=== PATIENT | female | born 1985 | race Caucasian/White ===

== ENCOUNTER 2017-04-24 19:42 | Emergency (ER) | payer OTHER ==
[2017-04-24 19:51] VITALS: BP 136/77
--- NOTE | 2017-04-24 19:57 | ED Physician Documentation ---
PD HPI UPPER EXT INJURY - Stated complaint Stated Complaint: FINGER PX - Chief complaint Chief Complaint: General - History obtained from History obtained from: Patient - History of Present Illness Location: Left, Finger (thumb) Type of injury: Blunt / blow (her nail rubbed on something and the proximal nail split at the base. Pain of it overnight and today she is noting a lump of tissue that is very tender.) Where injury occurred: Home Timing - onset: Yesterday Review of Systems GI: denies: Nausea, Vomiting Neurologic: denies: Focal weakness, Numbness PD PAST MEDICAL HISTORY - Past Medical History Psych: Depression - Past Surgical History Past Surgical History: Yes - Present Medications Home Medications: Ambulatory Orders Medication Instructions Recorded Confirmed Escitalopram Oxalate [Lexapro] 20 mg PO DAILY 01/27/15 04/24/17 buPROPion [Wellbutrin Sr] 300 mg PO DAILY 08/17/15 04/24/17 Cetirizine [ZyrTEC] 10 mg PO DAILY 04/24/17 04/24/17 Terbinafine HCl [Terbinafine] 1 applic TP DAILY #15 cream..g. 04/24/17 Zolpidem Tartrate [Ambien] 10 mg PO DAILY PM 04/24/17 04/24/17 - Allergies Allergies/Adverse Reactions: Allergies Allergy/AdvReac Type Severity Reaction Status Date / Time Penicillins Allergy Rash Verified 08/28/15 19:03 - Social History Does the pt smoke?: No Smoking Status: Never smoker Does the pt drink ETOH?: No Does the pt have substance abuse?: No - Immunizations Immunizations are current?: Yes - POLST Patient has POLST: No PD ED PE NORMAL - Vitals Vital signs reviewed: Yes - General General: Alert and oriented X 3, No acute distress, Well developed/nourished - Derm Derm: Normal color, Warm and dry - Extremities Extremities: Other (the base of the left thumb with small losa of the nail in 2 mm size. There is some 1-2 mm lumped tissue c/w healing granulation tissue. Does not appear infected. ) Results - Vitals Vitals: Vital Signs - 24 hr 04/24/17 19:49 Temperature 36.6 C Heart Rate 83 Respiratory 20 Rate Blood Pressure 136/77 H O2 Saturation 98 Oxygen O2 Source Room air PD MEDICAL DECISION MAKING - ED course Complexity details: considered differential (she has small grooves in several fingernails. Prior acrylic use might have caused damage, or biting the quick. The thumb seems to have split at this type of groove and there is small granulation tissue at proximal corner of bed. Dermabond placed over it. Not big enough for lancing nor injecting. ), d/w patient Departure - Departure Disposition: 01 Home, Self Care Clinical Impression: Fingernail injury Qualifiers: Encounter type: initial encounter Laterality: left Qualified Code(s): S69.92XA - Unspecified injury of left wrist, hand and finger(s), initial encounter Condition: Stable Record reviewed to determine appropriate education?: Yes Prescriptions: Terbinafine HCl [Terbinafine] 1 applic TP DAILY #15 cream..g. Comments: The small swelling of tissue is "over healing" of the injury and creating an excess lump of tissue. This usually goes down after the initial healing. The nail does look like there may be some mild fungus at the base and use the terbinafine daily to the nailbeds. Recheck of the nail does not heal over the next week or so. In particular the lump of tissue should go down so that the new growth of nail from the base has a smooth glidepath. Discharge Date/Time: 04/24/17 21:04
== END 2017-04-24 21:04 | disposition home or self-care (01) ==
LOC: ED 19:42
DX: S69.92XA Unspecified injury of left wrist, hand and finger(s), initial encounter (principal); X58.XXXA Exposure to other specified factors, initial encounter
CPT/HCPCS: 99283

== ENCOUNTER 2017-04-30 09:59 | Emergency (ER) | payer OTHER ==
[2017-04-30 10:05] VITALS: BP 119/76
[2017-04-30] MEDS ORDERED: BUPIVACAINE 0.5% PF 30 ML VIAL ONE (10:24)
--- NOTE | 2017-04-30 10:54 | ED Physician Documentation ---
PD HPI UPPER EXT INJURY - Stated complaint Stated Complaint: LT THUMB PX - Chief complaint Chief Complaint: Ext Problem - History obtained from History obtained from: Patient - History of Present Illness Location: Left, Finger (thumb) Timing - onset: How many weeks ago (1) Timing - details: Still present Associated symptoms: No: Weakness, Numbness Similar symptoms before: Has not had sx before Recently seen: Emergency Dept (6 days ago.) - Additonal information Additional information: The patient is a 31-year-old female who presents with pain at the base of the nailbed of her left thumb. She had an injury to her thumbnail about one week ago when the base of the nailbed splint. She was seen in the emergency department here 6 days ago and Dermabond was applied to the injured nail and nailbed. She presents now because of increased pain and abnormal growth at the nailbed. She is right hand dominant. Tetanus status is up-to-date. Review of Systems Constitutional: denies: Fever Respiratory: denies: Dyspnea GI: denies: Nausea, Vomiting Skin: denies: Rash Musculoskeletal: reports: Extremity pain (left thumb) Neurologic: denies: Focal weakness, Numbness PD PAST MEDICAL HISTORY - Past Medical History Past Medical History: Yes Psych: Depression - Past Surgical History Past Surgical History: Yes - Present Medications Home Medications: Ambulatory Orders Medication Instructions Recorded Confirmed Escitalopram Oxalate [Lexapro] 20 mg PO DAILY 01/27/15 04/30/17 buPROPion [Wellbutrin Sr] 300 mg PO DAILY 08/17/15 04/30/17 Cetirizine [ZyrTEC] 10 mg PO DAILY 04/24/17 04/30/17 Zolpidem Tartrate [Ambien] 10 mg PO DAILY PM 04/24/17 04/30/17 HYDROcod/ACETAM 5/325 [Vicodin 1 ea PO Q6H PRN #12 tablet 04/30/17 5/325] - Allergies Allergies/Adverse Reactions: Allergies Allergy/AdvReac Type Severity Reaction Status Date / Time Penicillins Allergy Rash Verified 04/30/17 10:05 - Social History Does the pt smoke?: No Smoking Status: Never smoker Does the pt drink ETOH?: No Does the pt have substance abuse?: No - Immunizations Immunizations are current?: Yes - POLST Patient has POLST: No PD ED PE NORMAL - Vitals Vital signs reviewed: Yes (normal) - General General: Alert and oriented X 3, Well developed/nourished - HEENT HEENT: Atraumatic - Respiratory Respiratory: No respiratory distress - Derm Derm: No rash - Extremities Extremities: Other (Nailbed of the left thumb is partially removed at its base, with growth of soft tissue over the proximal border of the injured nail bed. There is no surrounding erythema, or purulent drainage. Distal neurovascular is intact.) - Neuro Neuro: Alert and oriented X 3, No motor deficit, No sensory deficit Results - Vitals Vitals: Oxygen O2 Source Room air Procedures - General procedure General procedure: Procedure: Excision of injured portion of left thumb nailbed. That anesthesia was obtained with digital block using 1% lidocaine. The thumb was prepped and draped. The proximal radial edge of the nail was lifted and excised, revealing injured nailbed below. This is not amenable to suturing. Antibiotic ointment and tube gauze dressing was applied. The patient tolerated the procedure well, without complications. PD MEDICAL DECISION MAKING - ED course Complexity details: reviewed old records, re-evaluated patient, considered differential, d/w patient ED course: The patient's presentation is significant for injured nail and nailbed of the left thumb. There is no evidence of infection, and I doubt bony injury. Treatment in the emergency department included partial excision of the proximal radial aspect of the thumbnail. She is being discharged with prescription for Vicodin, 12 tablets. I discussed with her the importance of outpatient follow- up, as well as potentially worrisome signs or symptoms that should prompt reevaluation in the emergency department. Departure - Departure Disposition: 01 Home, Self Care Clinical Impression: Nailbed injury Condition: Stable Instructions: ED Ingrown Toenail Excised Follow-Up: OMAR SOSA [Primary Care Provider] - Prescriptions: HYDROcod/ACETAM 5/325 [Vicodin 5/325] 1 ea PO Q6H PRN #12 tablet PRN Reason: Pain Comments: Keep your left hand elevated as much the time as possible. Apply antibiotic ointment daily. You can use ibuprofen, up to 800 mg 3 times daily. Use Vicodin as prescribed if needed for pain. Follow up with your primary physician next week as scheduled. Return to the emergency department if you develop any sign of infection, or otherwise worsening symptoms. Discharge Date/Time: 04/30/17 11:01
== END 2017-04-30 11:01 | disposition home or self-care (01) ==
LOC: ED 09:59
DX: S69.92XA Unspecified injury of left wrist, hand and finger(s), initial encounter (principal)
CPT/HCPCS: 11730; 99283

== ENCOUNTER 2017-05-27 20:16 | Emergency (ER) | payer OTHER ==
[2017-05-27] MEDS ORDERED: KETOROLAC 60 MG/2 ML VIAL IVP STA (21:18)
[2017-05-27] MEDS ORDERED: ONDANSETRON 4 MG/2 ML VIAL IVP STA (21:18)
[2017-05-27] MEDS ORDERED: SODIUM CHLORIDE 0.9% 1,000 ML IV ONE (21:18)
[2017-05-27] MEDS ORDERED: HYDROmorphone 1 MG/ML SYRINGE IVP STA ×2 (21:18→22:12)
[2017-05-27] MEDS ORDERED: SODIUM CHLORIDE FLUSH 0.9% 10 ML SYRINGE IVP ONE (21:31)
[2017-05-27] MEDS ORDERED: ONDANSETRON 4 MG/2 ML VIAL ONE (21:41)
[2017-05-27] MEDS ORDERED: KETOROLAC 30 MG/ML VIAL ONE (21:41)
[2017-05-27] MEDS ORDERED: HYDROmorphone 1 MG/ML SYRINGE ONE ×2 (21:41→22:23)
[2017-05-27 21:46] LABS: CALCIUM 9.1 mg/dL (8.5-10.3); CREATININE 0.7 mg/dL (0.4-1.0); POTASSIUM 3.9 mmol/L (3.5-5.0)
[2017-05-27 21:49] LABS: BASOPHILS % (AUTO) 0.2 %; HCT - HEMATOCRIT 36.4 % (37.0-47.0); HGB - HEMOGLOBIN 12.6 g/dL (12.0-16.0); LYMPHOCYTES # (AUTO) 2.1 10^3/uL (1.5-3.5); LYMPHOCYTES % (AUTO) 15.8 %; MEAN CORPUSCULAR HEMOGLOBIN 32.3 pg (27.0-31.0); MEAN CORPUSCULAR HGB CONC 34.7 g/dL (32.0-36.0); MEAN CORPUSCULAR VOLUME 93.2 fL (81.0-99.0); MEAN PLATELET VOLUME 7.1 fL (7.9-10.8); MONOCYTES # (AUTO) 0.7 10^3/uL (0.0-1.0); MONOCYTES % (AUTO) 5.1 %; NEUTROPHILS # (AUTO) 10.6 10^3/uL (1.5-6.6); NEUTROPHILS % (AUTO) 78.9 %; RED CELL DISTRIBUTION WIDTH 12.4 % (12.0-15.0); UNCORRECTED WHITE BLOOD COUNT 13.4 x10^3/uL; WHITE BLOOD COUNT 13.4 x10^3/uL (4.8-10.8)
[2017-05-27] MEDS ORDERED: AZITHROMYCIN 250 MG TABLET PO STA (21:53)
--- NOTE | 2017-05-27 22:10 | ED Physician Documentation ---
History of Present Illness - Stated complaint Stated Complaint: SORE THROAT - Chief complaint Chief Complaint: Heent - Additonal information Additional information: 31-year-old female status post tonsillectomy a week ago who comes in with sore throat, low-grade fevers, myalgias and decreased p.o. intake. She feels dizzy when she stands. She is currently taking pain medication, Motrin, Tylenol and oxycodone at home with variable relief. She comes in because she feels she is getting worse not better in regards to her sore throat. Denies any chest pain, shortness of breath cough, nausea, vomiting, constipation , diarrhea or lower urinary symptoms. Review of systems: For pertinent positive and negatives in the review of systems please see the history of present illness, otherwise all other systems have been reviewed and are negative. Dragon disclaimer: Parts of this medical record were created using voice recognition technology. Because of the inherent limitations of this system, occasional same sounding word substitutions do occur and persist despite proofreading. Please read the document for context. Review of Systems Constitutional: reports: Fever, Chills, Myalgias Throat: reports: Sore throat Cardiac: denies: Chest pain / pressure, Palpitations GI: denies: Abdominal Pain, Abdominal Swelling, Nausea, Vomiting PD PAST MEDICAL HISTORY - Past Medical History Psych: Depression - Past Surgical History Past Surgical History: Yes - Present Medications Home Medications: Ambulatory Orders Medication Instructions Recorded Confirmed Escitalopram Oxalate [Lexapro] 20 mg PO DAILY 01/27/15 04/30/17 buPROPion [Wellbutrin Sr] 300 mg PO DAILY 08/17/15 04/30/17 Cetirizine [ZyrTEC] 10 mg PO DAILY 04/24/17 04/30/17 Zolpidem Tartrate [Ambien] 10 mg PO DAILY PM 04/24/17 04/30/17 Azithromycin 250 mg PO DAILY #4 tablet 05/27/17 Dexamethasone 4 mg PO 05/27/17 oxyCODONE [Roxicodone] 5 mg PO ONCE 05/27/17 05/27/17 - Allergies Allergies/Adverse Reactions: Allergies Allergy/AdvReac Type Severity Reaction Status Date / Time Penicillins Allergy Rash Verified 05/27/17 20:32 - Social History Does the pt smoke?: No Smoking Status: Never smoker Does the pt drink ETOH?: No Does the pt have substance abuse?: No - Immunizations Immunizations are current?: Yes - POLST Patient has POLST: No PD ED PE NORMAL - Vitals Vital signs reviewed: Yes - General General: Alert and oriented X 3, No acute distress, Well developed/nourished, Other (She looks slightly flushed in appearance. Examination of her oropharynx reveals necrotic tissue in the back of her throat consistent for the postoperative tonsillectomy.. There is a little odor detected. The posterior pharynx is mildly erythematous.) - Neck Neck: Supple, no meningeal sign, No JVD - Cardiac Cardiac: RRR, No murmur, No gallop, No rub - Respiratory Respiratory: No respiratory distress, Clear bilaterally - Abdomen Abdomen: Normal bowel sounds, Soft, Non tender, Non distended - Derm Derm: Normal color, Warm and dry, No rash - Extremities Extremities: No deformity, No tenderness to palpate, Normal ROM s pain, No edema - Neuro Neuro: Alert and oriented X 3, No motor deficit, No sensory deficit Results - Vitals Vitals: Vital Signs - 24 hr 05/27/17 20:30 Temperature 36.3 C L Heart Rate 74 Respiratory 16 Rate Blood Pressure 129/84 H O2 Saturation 99 Oxygen O2 Source Room air - Labs Labs: Laboratory Tests 05/27/17 05/27/17 21:31 21:31 WBC 13.4 H RBC 3.90 L Hgb 12.6 Hct 36.4 L MCV 93.2 MCH 32.3 H MCHC 34.7 RDW 12.4 Plt Count 448 MPV 7.1 L Neut # 10.6 H Lymph # 2.1 [place] # 0.7 Eos # 0.0 Baso # 0.0 Absolute Nucleated RBC 0.00 Nucleated RBCs 0.0 Sodium 133 L Potassium 3.9 Chloride 100 L Carbon Dioxide 24 Anion Gap 9.0 BUN 11 Creatinine 0.7 Estimated GFR (MDRD) 98 Glucose 109 H Calcium 9.1 PD MEDICAL DECISION MAKING - ED course ED course: Patient's oropharynx is red and necrotic not entirely abnormal for the post tonsillectomy.. She did look a little flushed and felt slightly warm to touch and had a mild elevation of white count at 13,000 as well as an odor so there is a concern about a possible secondary posterior pharynx infection. I did not want to swab the area because of the recent surgery so we decided to treat her empirically. She will be placed on azithromycin because she is penicillin allergic. She is given a liter of IV fluid and some IV pain medication and looks and feels better. At this point the patient is except will be discharged home. Disposition: To home Clinical impression: 1. Suspect strep throat 2. Status post tonsillectomy day 7 3. Mild dehydration Departure - Departure Disposition: Home, Self Care Clinical Impression: Post-tonsillectomy pain Pharyngitis Qualifiers: Pharyngitis/tonsillitis etiology: unspecified etiology Qualified Code(s): J02.9 - Acute pharyngitis, unspecified Condition: Good Instructions: ED Strep Pharyngitis Poss Follow-Up: OMAR SOSA [Primary Care Provider] - Prescriptions: Azithromycin 250 mg PO DAILY #4 tablet
[2017-05-27] MEDS ORDERED: AZITHROMYCIN 250 MG TABLET PO ONE (22:24)
[2017-05-27 22:52] VITALS: BP 118/80
== END 2017-05-27 22:51 | disposition home or self-care (01) ==
LOC: ED 20:16
DX: J02.9 Acute pharyngitis, unspecified (principal); G89.18 Other acute postprocedural pain
CPT/HCPCS: 36415; 80048; 85025; 96374; 96375; 96376; 99283; A9270; J1170

== ENCOUNTER 2017-10-29 23:22 | Emergency (ER) | payer OTHER ==
[2017-10-29 23:33] VITALS: BP 136/89
[2017-10-30 00:29] LABS: BILIRUBIN,URINE NEGATIVE (NEGATIVE); GLUCOSE, URINE (UA) NEGATIVE (NEGATIVE); KETONES,URINE (UA) NEGATIVE (NEGATIVE); LEUKOCYTE ESTERASE, URINE NEGATIVE (NEGATIVE); NITRITE,URINE NEGATIVE (NEGATIVE); OCCULT BLOOD,URINE NEGATIVE (NEGATIVE); PROTEIN,URINE NEGATIVE (NEGATIVE); UROBILINOGEN,URINE 0.2 (NORMAL) E.U./dL (NORMAL)
[2017-10-30 00:30] LABS: CLARITY,URINE CLEAR (CLEAR)
[2017-10-30 00:31] LABS: HCG UR QUAL NEGATIVE
[2017-10-30 00:34] LABS: BASOPHILS # (AUTO) 0.1 10^3/uL (0.0-0.1); BASOPHILS % (AUTO) 1.2 %; EOSINOPHILS # (AUTO) 0.3 10^3/uL (0.0-0.7); EOSINOPHILS % (AUTO) 3.2 %; HGB - HEMOGLOBIN 11.3 g/dL (12.0-16.0); LYMPHOCYTES # (AUTO) 3.1 10^3/uL (1.5-3.5); LYMPHOCYTES % (AUTO) 36.4 %; MEAN CORPUSCULAR HGB CONC 36.6 g/dL (32.0-36.0); MEAN CORPUSCULAR VOLUME 90.2 fL (81.0-99.0); MONOCYTES # (AUTO) 0.6 10^3/uL (0.0-1.0); MONOCYTES % (AUTO) 6.9 %; NEUTROPHILS # (AUTO) 4.5 10^3/uL (1.5-6.6); NEUTROPHILS % (AUTO) 52.3 %; PLT - PLATELET COUNT 423 10^3/uL (130-450); RED BLOOD COUNT 3.42 10^6/uL (4.20-5.40); WHITE BLOOD COUNT 8.5 x10^3/uL (4.8-10.8)
--- NOTE | 2017-10-30 00:36 | XRAY Report ---
EXAM: CHEST RADIOGRAPHY EXAM DATE: 10/30/2017 12:27 AM. CLINICAL HISTORY: Fever, cough, recent intubation. COMPARISON: None. TECHNIQUE: 2 views. FINDINGS: Lungs/Pleura: Left lower lobe airspace opacity with clear right lung. No gross pneumothorax or effusi on. Mediastinum: Heart and mediastinal contours are unremarkable. Other: None. IMPRESSION: Left lower lobe pneumonia. [facility] Referring Provider Line: [phone] SITE ID: [id number]
[2017-10-30 00:45] LABS: ALBUMIN 3.9 g/dL (3.2-5.5); ALBUMIN/GLOBULIN RATIO 1.1 (1.0-2.2); BILIRUBIN,TOTAL 0.6 mg/dL (0.2-1.0); CREATININE 0.6 mg/dL (0.4-1.0); TOTAL PROTEIN 7.3 g/dL (6.7-8.2)
[2017-10-30] MEDS ORDERED: levoFLOXacin 250 MG TABLET PO STA (00:48)
[2017-10-30] MEDS ORDERED: BENZONATATE 100 MG CAPSULE PO STA (00:48)
[2017-10-30] MEDS ORDERED: IBUPROFEN 600 MG TABLET PO STA (00:48)
--- NOTE | 2017-10-30 00:49 | ED Physician Documentation ---
PD HPI DYSPNEA - Stated complaint Stated Complaint: COUGH/N/F - Chief complaint Chief Complaint: Resp - History obtained from History obtained from: Patient - History of Present Illness Timing - onset: How many days ago (3) Timing - details: Gradual onset, Still present Inciting event(s): URI Associated symptoms: Fever, Cough, Chest pain / discomfort, Diaphoresis Similar symptoms before: No diagnosis Recently seen: Surgery - Additional information Additional information: Patient is a 32 year old female presenting to the emergency department for cough , fever and uri symptoms. Patient states that she had a procedure done on wednesday (five days prior) she was intubated at that time. patient states that she felt ok when she went home but over the last few days has had fevers up to 101. Patient states that she has been coughing so much she developed chest pain with the cough. Review of Systems Constitutional: reports: Fever, Chills, Myalgias Eyes: denies: Decreased vision, Photophobia Ears: denies: Ear pain, Drainage/discharge Nose: reports: Rhinorrhea / runny nose, Congestion Throat: denies: Sore throat Cardiac: reports: Chest pain / pressure. denies: Pedal edema Respiratory: reports: Dyspnea, Cough. denies: Hemoptysis, Wheezing GI: denies: Abdominal Pain, Nausea, Vomiting : reports: Reviewed and negative Skin: reports: Reviewed and negative Musculoskeletal: reports: Back pain. denies: Neck pain Neurologic: denies: Generalized weakness, Focal weakness, Numbness Immunocompromised: denies: Immunocompromised PD PAST MEDICAL HISTORY - Past Medical History Past Medical History: Yes Cardiovascular: None Neuro: None HEENT: None Psych: Depression - Past Surgical History Past Surgical History: Yes - Present Medications Home Medications: Ambulatory Orders Medication Instructions Recorded Confirmed Escitalopram Oxalate [Lexapro] 20 mg PO DAILY 01/27/15 04/30/17 buPROPion [Wellbutrin Sr] 300 mg PO DAILY 08/17/15 04/30/17 Cetirizine [ZyrTEC] 10 mg PO DAILY 04/24/17 04/30/17 Zolpidem Tartrate [Ambien] 10 mg PO DAILY PM 04/24/17 04/30/17 Azithromycin 250 mg PO DAILY #4 tablet 05/27/17 Dexamethasone 4 mg PO 05/27/17 oxyCODONE [Roxicodone] 5 mg PO ONCE 05/27/17 05/27/17 Benzonatate [Tessalon Perle] 100 mg PO TID #14 capsule 10/30/17 Codeine Phosphate/Guaifenesin 5 ml PO DAILY PM #100 ml 10/30/17 [Guaifen-Codeine 100-10 mg/5 ml] Levofloxacin [Levaquin] 750 mg PO DAILY #4 tablet 10/30/17 - Allergies Allergies/Adverse Reactions: Allergies Allergy/AdvReac Type Severity Reaction Status Date / Time Penicillins Allergy Rash Verified 10/29/17 23:33 - Social History Does the pt smoke?: No Smoking Status: Never smoker Does the pt drink ETOH?: No Does the pt have substance abuse?: No - Immunizations Immunizations are current?: Yes - POLST Patient has POLST: No PD ED PE NORMAL - Vitals Vital signs reviewed: Yes - General General: Alert and oriented X 3, Well developed/nourished - HEENT HEENT: Atraumatic, PERRL - Neck Neck: Supple, no meningeal sign - Cardiac Cardiac: RRR, No murmur - Abdomen Abdomen: Soft, Non distended - Derm Derm: Normal color, Warm and dry - Extremities Extremities: No deformity, Normal ROM s pain, No calf tenderness / cord - Neuro Neuro: Alert and oriented X 3, No motor deficit, No sensory deficit, Normal speech Eye Opening: Spontaneous Motor: Obeys Commands Verbal: Oriented GCS Score: 15 - Psych Psych: Normal mood PD ED PE EXPANDED - HEENT HEENT: Nasal congestion, Rhinorrhea, Moist mucous membranes - Respiratory Respiratory: Rhonchi. No: Stridor, Gasping, Accessory mm use, Wheezing Results - Vitals Vitals: Vital Signs - 24 hr 10/29/17 23:26 Temperature 37.7 C H Heart Rate 86 Respiratory 22 Rate Blood Pressure 136/89 H O2 Saturation 98 Oxygen O2 Source Room air - Labs Labs: Laboratory Tests 10/30/17 10/30/17 10/30/17 00:05 00:05 00:28 WBC 8.5 RBC 3.42 L Hgb 11.3 L Hct 30.9 L MCV 90.2 MCH 33.0 H MCHC 36.6 H RDW 13.0 Plt Count 423 MPV 7.0 L Neut # 4.5 Lymph # 3.1 [place] # 0.6 Eos # 0.3 Baso # 0.1 Absolute Nucleated RBC 0.00 Nucleated RBC % 0.0 Sodium Potassium Chloride Carbon Dioxide Anion Gap BUN Creatinine Estimated GFR (MDRD) Glucose Calcium Total Bilirubin AST ALT Alkaline Phosphatase Total Protein Albumin Globulin Albumin/Globulin Ratio Lipase Urine Color LT. YELLOW Urine Clarity CLEAR Urine pH 6.0 Ur Specific [place] 1.010 Urine Protein NEGATIVE Urine Glucose (UA) NEGATIVE Urine Ketones NEGATIVE Urine Occult Blood NEGATIVE Urine Nitrite NEGATIVE Urine Bilirubin NEGATIVE Urine Urobilinogen 0.2 (NORMAL) Ur Leukocyte Esterase NEGATIVE Ur Microscopic Review NOT INDICATED Urine Culture Comments NOT INDICATED Urine HCG, Qual NEGATIVE Influenza A (Rapid) Negative Influenza B (Rapid) Negative Influenza Types A,B Ag - 10/30/17 00:28 WBC RBC Hgb Hct MCV MCH MCHC RDW Plt Count MPV Neut # Lymph # [place] # Eos # Baso # Absolute Nucleated RBC Nucleated RBC % Sodium 137 Potassium 3.3 L Chloride 103 Carbon Dioxide 21 Anion Gap 13.0 BUN 7 Creatinine 0.6 Estimated GFR (MDRD) 117 Glucose 129 H Calcium 9.0 Total Bilirubin 0.6 AST 41 ALT 50 Alkaline Phosphatase 93 Total Protein 7.3 Albumin 3.9 Globulin 3.4 Albumin/Globulin Ratio 1.1 Lipase 29 Urine Color Urine Clarity Urine pH Ur Specific [place] Urine Protein Urine Glucose (UA) Urine Ketones Urine Occult Blood Urine Nitrite Urine Bilirubin Urine Urobilinogen Ur Leukocyte Esterase Ur Microscopic Review Urine Culture Comments Urine HCG, Qual Influenza A (Rapid) Influenza B (Rapid) Influenza Types A,B Ag - Rads (name of study) chest x-ray Radiology: Final report received (left lower lobe pneumonia) PD MEDICAL DECISION MAKING - ED course Complexity details: reviewed old records, reviewed results, re-evaluated patient , d/w patient ED course: Patient was seen and examined at bedside. Labs were drawn. chest x-ray was ordered and urine was collected. patient was found to have pneumonia and due to the recent intubation was treated with levaquin, ibuprofen and tessalon. patient was well appearing, no elevated white count and afebrile. Patient was stable for discharge with outpatient treatment. Departure - Departure Disposition: 01 Home, Self Care Clinical Impression: Pneumonia Condition: Good Instructions: Pneumonia Dc Follow-Up: OMAR SOSA [Primary Care Provider] - Within 3 Days Prescriptions: Benzonatate [Tessalon Perle] 100 mg PO TID #14 capsule Codeine Phosphate/Guaifenesin [Guaifen-Codeine 100-10 mg/5 ml] 5 ml PO DAILY PM #100 ml Levofloxacin [Levaquin] 750 mg PO DAILY #4 tablet Comments: Your symptoms today are being caused by pneumonia. You had your first dose of antibiotics and will need them for the next 4 days. You should take tessalon during the day, and the cough medicine with codeine at night before bed. if your symptoms don't improve by wednesday you should follow up with your doctor. You may return to the emergency department at any time for new worsening or uncontrollable symptoms
== END 2017-10-30 01:22 | disposition home or self-care (01) ==
LOC: ED 23:22
DX: J18.9 Pneumonia, unspecified organism (principal)
CPT/HCPCS: 36415; 71046; 80053; 81003; 81025; 83690; 85025; 87275; 87276; 99283; 99284; A9270; 81001; 87086

== ENCOUNTER 2018-01-29 10:51 | Outpatient (CLI) | payer OTHER | END 2018-01-29 10:52 | disposition home or self-care (01) | LOC: DI 10:51 | PROVIDERS: ATTEND Family Medicine | DX: R60.9 Edema, unspecified (principal); J45.909 Unspecified asthma, uncomplicated | CPT/HCPCS: 93306 ==

== ENCOUNTER 2018-03-04 16:31 | Emergency (ER) | payer OTHER ==
[2018-03-04] MEDS ORDERED: IPRATROPIUM/ALBUTEROL 3 ML NEB INH STA (16:55)
--- NOTE | 2018-03-04 16:56 | ED Physician Documentation ---
PD HPI DYSPNEA - Stated complaint Stated Complaint: SOA/DIZZY - Chief complaint Chief Complaint: Heent - History obtained from History obtained from: Patient - History of Present Illness Timing - details: Waxing and waning (worse today) Similar symptoms before: Diagnosis (History of asthma.) - Treatment prior to arrival Treatment prior to arrival: albuterol inhaler. - Additional information Additional information: The patient is a 32-year-old female with history of asthma who presents with shortness of breath which has been occurring intermittently for the past month, but was worse today. She denies cough, fever, or chest pain. She does report "pressure" in her chest. She does not smoke cigarettes. Her last episode of similar symptoms was more than a year ago. She has been using her albuterol inhaler without relief. Review of Systems Constitutional: denies: Fever Eyes: denies: Irritation Ears: denies: Tinnitus/ringing Nose: denies: Congestion Throat: denies: Sore throat Cardiac: reports: Chest pain / pressure. denies: Palpitations Respiratory: reports: Dyspnea. denies: Cough GI: denies: Abdominal Pain, Nausea, Vomiting : denies: Dysuria Skin: denies: Rash Musculoskeletal: denies: Back pain Neurologic: denies: Focal weakness, Numbness, Headache PD PAST MEDICAL HISTORY - Past Medical History Past Medical History: Yes Cardiovascular: None Respiratory: Asthma Endocrine/Autoimmune: None HEENT: None Psych: Depression - Past Surgical History Past Surgical History: Yes General: Other HEENT: Tonsil/Adenoidectomy - Present Medications Home Medications: Ambulatory Orders Medication Instructions Recorded Confirmed Escitalopram Oxalate [Lexapro] 20 mg PO DAILY 01/27/15 04/30/17 buPROPion [Wellbutrin Sr] 300 mg PO DAILY 08/17/15 04/30/17 Cetirizine [ZyrTEC] 10 mg PO DAILY 04/24/17 04/30/17 Zolpidem Tartrate [Ambien] 10 mg PO DAILY PM 04/24/17 04/30/17 Azithromycin 250 mg PO DAILY #4 tablet 05/27/17 Dexamethasone 4 mg PO 05/27/17 oxyCODONE [Roxicodone] 5 mg PO ONCE 05/27/17 05/27/17 Benzonatate [Tessalon Perle] 100 mg PO TID #14 capsule 10/30/17 Codeine Phosphate/Guaifenesin 5 ml PO DAILY PM #100 ml 10/30/17 [Guaifen-Codeine 100-10 mg/5 ml] Levofloxacin [Levaquin] 750 mg PO DAILY #4 tablet 10/30/17 - Allergies Allergies/Adverse Reactions: Allergies Allergy/AdvReac Type Severity Reaction Status Date / Time Penicillins Allergy Rash Verified 10/29/17 23:33 - Social History Does the pt smoke?: No Smoking Status: Never smoker Does the pt drink ETOH?: No Does the pt have substance abuse?: No - Immunizations Immunizations are current?: Yes - POLST Patient has POLST: No PD ED PE NORMAL - Vitals Vital signs reviewed: Yes (Hypertensive) - General General: Alert and oriented X 3, Well developed/nourished, Other (Overweight, taking rapid, shallow breaths.) - HEENT HEENT: Atraumatic, Moist mucous membranes, Pharynx benign - Neck Neck: Supple, no meningeal sign, No adenopathy, No JVD - Cardiac Cardiac: RRR, No murmur - Respiratory Respiratory: Other (Good air movement on auscultation, with few faint scattered wheezed with forced expiration.) - Abdomen Abdomen: Soft, Other (Rotund abdomen, with mild epigastric tenderness to palpation.) - Back Back: No CVA TTP - Derm Derm: No rash - Extremities Extremities: No edema, No calf tenderness / cord - Neuro Neuro: Alert and oriented X 3, No motor deficit, Normal speech Results - Vitals Vitals: Vital Signs - 24 hr 03/04/18 03/04/18 03/04/18 16:40 17:12 17:58 Temperature 36.8 C Heart Rate 94 95 78 Respiratory 18 18 18 Rate Blood Pressure 152/96 H 133/80 H O2 Saturation 99 98 Oxygen O2 Source Room air - EKG (time done) 16:41 Rate: Rate (enter#) (84) Rhythm: NSR [place]: Normal Intervals: Normal PA QRS: Normal Ischemia: Normal ST segments Computer interpretation: Agree with computer - Labs Labs: Laboratory Tests 03/04/18 17:14 D-Dimer 264.4 H - Rads (name of study) cxr Radiology: Prelim report reviewed, EMP read contemporaneously, See rad report ( Nonspecific bronchial wall thickening, could represent bronchitis versus reactive airways disease. No consolidation, effusions, or pneumothorax.) PD MEDICAL DECISION MAKING - ED course Complexity details: reviewed old records, reviewed results, re-evaluated patient , considered differential, d/w patient ED course: The patient's presentation with dyspnea and anterior chest pressure appears most likely due to gastroesophageal reflux and associated hyperventilation syndrome. She has history of asthma and her chest x-ray reveals some peribronchial thickening consistent with reactive airways disease. However her clinical presentation does not suggest a significant component of asthma exacerbation. She has good air movement on auscultation of her lung hutchinson, and no appreciable improvement after treatment with DuoNeb nebulizer. There is no evidence for cardiac etiology of her symptoms, with normal electrocardiogram , and no evidence of pulmonary vascular congestion on chest x-ray. I doubt pulmonary embolus, with a d-dimer that is in the upper range of normal. On initial presentation she was clearly hyperventilating, which accounts for her feeling of "dizziness" and tingling in her fingers. Administration of GI cocktail completely relieved her symptoms, including her dyspnea, anterior chest pressure, as well as resolution of epigastric discomfort on examination. I discussed with her the likely source of her symptoms, symptomatic treatment and outpatient follow-up, as well as potentially worrisome signs or symptoms that should prompt reevaluation in the emergency department. - Sepsis Event Vital Signs: Vital Signs - 24 hr 03/04/18 03/04/18 03/04/18 16:40 17:12 17:58 Temperature 36.8 C Heart Rate 94 95 78 Respiratory 18 18 18 Rate Blood Pressure 152/96 H 133/80 H O2 Saturation 99 98 Oxygen O2 Source Room air Departure - Departure Disposition: 01 Home, Self Care Clinical Impression: Hyperventilation, History of asthma GERD (gastroesophageal reflux disease) Qualifiers: Esophagitis presence: esophagitis presence not specified Qualified Code(s): K21.9 - Gastro-esophageal reflux disease without esophagitis Condition: Stable Instructions: ED GERD, ED Hyperventilation Syndrome Follow-Up: OMAR SOSA [Primary Care Provider] - Comments: He can drink liquid antacid, such as Maalox or Mylanta if you develop recurrent symptoms. Continue using albuterol inhaler as previously prescribed. Follow up with your primary physician within 1-2 weeks. Call to schedule an appointment. Return to the emergency department if you develop increasing difficulty breathing, or otherwise worsening symptoms. Discharge Date/Time: 03/04/18 18:18
--- NOTE | 2018-03-04 17:29 | XRAY Report ---
Procedure Date: 03/04/2018 Accession Number: [id number] / [id number] Procedure: XR - Chest 2 View X-Ray CPT Code: 17898 FULL RESULT: EXAM: CHEST RADIOGRAPHY EXAM DATE: 03/04/2018 05:04 PM. CLINICAL HISTORY: Dyspnea with history of asthma. COMPARISON: 10/30/2017. TECHNIQUE: 2 views. FINDINGS: Lungs/Pleura: No focal opacities evident. No pleural effusion. No pneumothorax. Normal volumes. Mild bronchial wall thickening noted. Mediastinum: Heart and mediastinal contours are unremarkable. Other: None. IMPRESSION: 1. Nonspecific bronchial wall thickening could represent bronchitis versus reactive airways disease. 2. No consolidation, effusions or pneumothorax. RADIA
[2018-03-04] MEDS ORDERED: LIDOCAINE VISCOUS 2% 15 ML UDC MM STA (17:53)
[2018-03-04] MEDS ORDERED: MAG HYDROX/AL HYDROX/SIMETH 30 ML UDC PO STA (17:53)
[2018-03-04 17:59] VITALS: BP 133/80
== END 2018-03-04 18:18 | disposition home or self-care (01) ==
LOC: ED 16:31
DX: K21.9 Gastro-esophageal reflux disease without esophagitis (principal); R06.4 Hyperventilation; J45.909 Unspecified asthma, uncomplicated
CPT/HCPCS: 36415; 71046; 85379; 93005; 94640; 99283; 99284; A9270

== ENCOUNTER 2018-03-19 09:06 | Outpatient (CLI) | payer OTHER | END 2018-03-19 09:07 | disposition home or self-care (01) | LOC: RT 09:06 | PROVIDERS: ATTEND Family Medicine | DX: R06.02 Shortness of breath (principal) | CPT/HCPCS: 94010 ==

== ENCOUNTER 2018-10-29 08:22 | Emergency (ER) | payer OTHER ==
--- NOTE | 2018-10-29 08:37 | ED Physician Documentation ---
PD HPI URI - Stated complaint Stated Complaint: COLD SX - Chief complaint Chief Complaint: Resp - History obtained from History obtained from: Patient - History of Present Illness Timing - onset: How many weeks ago (2-3 weeks of congestion and some cough, was improving and then has had couple days of worse cough, productive sputum, fevers.) Timing details: Gradual onset, Still present Associated symptoms: Fever, Nasal congestion, Productive cough, Dyspnea. No: Hemoptysis, NVD Contributing factors: No: Sick contact, Travel, COPD / asthma Similar symptoms before: Has not had sx before Recently seen: Not recently seen Review of Systems Constitutional: reports: Fever, Chills, Myalgias Nose: reports: Rhinorrhea / runny nose Throat: denies: Sore throat Cardiac: denies: Chest pain / pressure, Palpitations Respiratory: reports: Dyspnea, Cough. denies: Wheezing GI: denies: Nausea, Vomiting, Diarrhea PD PAST MEDICAL HISTORY - Past Medical History Cardiovascular: None Respiratory: Asthma Endocrine/Autoimmune: None HEENT: None Psych: Depression - Past Surgical History Past Surgical History: Yes General: Other HEENT: Tonsil/Adenoidectomy - Present Medications Home Medications: Ambulatory Orders Medication Instructions Recorded Confirmed buPROPion [Wellbutrin Sr] 300 mg PO DAILY 08/17/15 10/29/18 Zolpidem Tartrate [Ambien] 10 mg PO DAILY PM 04/24/17 04/30/17 Benzonatate [Tessalon Perle] 100 - 200 mg PO TID PRN #30 capsule 10/29/18 Dexamethasone [Decadron] 4 mg PO DAILY #5 tablet 10/29/18 Doxycycline Hyclate 100 mg PO BID #20 capsule 10/29/18 Fexofenadine HCl [Laisha Allergy] 1 tab PO DAILY 10/29/18 10/29/18 Fluticasone [Flonase] 1 spray MALISSA BID PRN 10/29/18 10/29/18 Lisdexamfetamine Dimesylate 50 mg ORAL DAILY 10/29/18 10/29/18 [Vyvanse] Spironolactone 1 tab PO DAILY 10/29/18 10/29/18 Vilazodone HCl [Viibryd] 20 mg PO DAILY 10/29/18 10/29/18 Zolpidem Tartrate [Ambien] 10 mg PO DAILY PM 10/29/18 10/29/18 - Allergies Allergies/Adverse Reactions: Allergies Allergy/AdvReac Type Severity Reaction Status Date / Time Penicillins Allergy Rash Verified 10/29/18 08:29 - Social History Does the pt smoke?: No Smoking Status: Never smoker Does the pt drink ETOH?: No Does the pt have substance abuse?: No - Immunizations Immunizations are current?: Yes - POLST Patient has POLST: No PD ED PE NORMAL - Vitals Vital signs reviewed: Yes - General General: Alert and oriented X 3, No acute distress, Well developed/nourished - HEENT HEENT: Moist mucous membranes, Pharynx benign - Neck Neck: Supple, no meningeal sign, No adenopathy - Cardiac Cardiac: RRR, No murmur - Respiratory Respiratory: Clear bilaterally Results - Vitals Vitals: Vital Signs - 24 hr 10/29/18 10/29/18 10/29/18 08:26 08:43 09:02 Temperature 35.9 C L Heart Rate 78 80 80 Respiratory 15 Rate Blood Pressure 124/91 H 128/84 H 119/95 H O2 Saturation 98 99 99 Oxygen O2 Source Room air PD MEDICAL DECISION MAKING - ED course Complexity details: considered differential (has had URI symptoms with now worsening and fever, productive cough.), d/w patient Departure - Departure Disposition: 01 Home, Self Care Clinical Impression: Upper respiratory infection Qualifiers: URI type: unspecified URI Qualified Code(s): J06.9 - Acute upper respiratory infection, unspecified Acute bronchitis Qualifiers: Bronchitis organism: unspecified organism Qualified Code(s): J20.9 - Acute bronchitis, unspecified Condition: Stable Record reviewed to determine appropriate education?: Yes Instructions: ED Upper Resp Infec Abx Tx Follow-Up: Shell Lee [employer] [Primary Care Provider] - Prescriptions: Benzonatate [Tessalon Perle] 100 - 200 mg PO TID PRN #30 capsule PRN Reason: Cough Dexamethasone [Decadron] 4 mg PO DAILY #5 tablet Doxycycline Hyclate 100 mg PO BID #20 capsule Comments: Use your albuterol inhaler 2 puffs 4 times a day for the next week or so and extra times as needed for wheezing and cough. Decadron steroid daily for the next 5 days. Doxycycline antibiotic twice daily for a week. Add Tessalon if needed for cough. Recheck if not improving well over the next few days. Discharge Date/Time: 10/29/18 09:07
[2018-10-29] MEDS ORDERED: BENZONATATE 100 MG CAPSULE PO STA (08:52)
[2018-10-29] MEDS ORDERED: DOXYCYCLINE 100 MG TABLET PO STA (08:52)
[2018-10-29] MEDS ORDERED: DEXAMETHASONE 10 MG/ML VIAL PO STA (08:52)
[2018-10-29 09:03] VITALS: BP 119/95
== END 2018-10-29 09:07 | disposition home or self-care (01) ==
LOC: ED 08:22
DX: J06.9 Acute upper respiratory infection, unspecified (principal); J20.9 Acute bronchitis, unspecified
CPT/HCPCS: 99283; A9270

== ENCOUNTER 2018-11-28 15:00 | Outpatient (CLI) | payer OTHER | END 2018-11-28 15:01 | disposition home or self-care (01) | LOC: SC 15:00 | PROVIDERS: ATTEND Internal Medicine Pulmonary Disease | DX: R53.83 Other fatigue (principal); R06.83 Snoring | CPT/HCPCS: 99203; 99212 ==

== ENCOUNTER 2019-01-16 17:33 | Emergency (ER) | payer OTHER ==
--- NOTE | 2019-01-16 19:40 | ED Physician Documentation ---
PD HPI URI - Stated complaint Stated Complaint: COUGHING,FEVER - Chief complaint Chief Complaint: Resp - History obtained from History obtained from: Patient - History of Present Illness Timing - onset: How many months ago (has had some cough since September, with worse at times. Seen twice with abx steroids, inhaler.) Timing duration: Months (3) Timing details: Gradual onset, Still present, Waxing and waning Associated symptoms: Productive cough, Dyspnea. No: Fever, Nasal congestion, NVD Contributing factors: No: Sick contact, COPD / asthma Recently seen: Clinic, Emergency Dept Review of Systems Constitutional: reports: Myalgias, Fatigue. denies: Fever Nose: denies: Rhinorrhea / runny nose, Congestion Throat: denies: Sore throat Cardiac: reports: Chest pain / pressure (with coughing) Respiratory: reports: Dyspnea, Cough, Wheezing GI: denies: Nausea, Vomiting, Diarrhea Skin: denies: Rash, Lesions PD PAST MEDICAL HISTORY - Past Medical History Cardiovascular: None Respiratory: Asthma Neuro: Headaches Endocrine/Autoimmune: None GI: None FIELD SERVICE ANALYST: None : None HEENT: None Psych: Depression Musculoskeletal: None Derm: None - Past Surgical History Past Surgical History: Yes General: Other HEENT: Tonsil/Adenoidectomy - Present Medications Home Medications: Ambulatory Orders Medication Instructions Recorded Confirmed buPROPion [Wellbutrin Sr] 300 mg PO DAILY 08/17/15 10/29/18 Zolpidem Tartrate [Ambien] 10 mg PO DAILY PM 04/24/17 04/30/17 Benzonatate [Tessalon Perle] 100 - 200 mg PO TID PRN #30 capsule 10/29/18 Dexamethasone [Decadron] 4 mg PO DAILY #5 tablet 10/29/18 Doxycycline Hyclate 100 mg PO BID #20 capsule 10/29/18 Fexofenadine HCl [Laisha Allergy] 1 tab PO DAILY 10/29/18 10/29/18 Fluticasone [Flonase] 1 spray MALISSA BID PRN 10/29/18 10/29/18 Lisdexamfetamine Dimesylate 50 mg ORAL DAILY 10/29/18 10/29/18 [Vyvanse] Spironolactone 1 tab PO DAILY 10/29/18 10/29/18 Vilazodone HCl [Viibryd] 20 mg PO DAILY 10/29/18 10/29/18 Zolpidem Tartrate [Ambien] 10 mg PO DAILY PM 10/29/18 10/29/18 Albuterol Sulf [Ventolin Hfa 1 - 2 puffs INH Q4HR PRN #1 inhaler 01/16/19 Inhaler] Benzonatate [Tessalon Perle] 100 - 200 mg PO TID PRN #30 capsule 01/16/19 Cephalexin [Keflex] 500 mg PO TID #24 capsule 01/16/19 Dexamethasone [Decadron] 4 mg PO DAILY #5 tablet 01/16/19 - Allergies Allergies/Adverse Reactions: Allergies Allergy/AdvReac Type Severity Reaction Status Date / Time Penicillins Allergy Rash Verified 10/29/18 08:29 - Social History Does the pt smoke?: No Smoking Status: Never smoker Does the pt drink ETOH?: No Does the pt have substance abuse?: No - Immunizations Immunizations are current?: Yes - POLST Patient has POLST: No PD ED PE NORMAL - Vitals Vital signs reviewed: Yes - General General: Alert and oriented X 3, No acute distress, Well developed/nourished - HEENT HEENT: Ears normal, Moist mucous membranes, Pharynx benign - Neck Neck: Supple, no meningeal sign, No adenopathy - Cardiac Cardiac: RRR, No murmur - Respiratory Respiratory: Clear bilaterally - Abdomen Abdomen: Soft, Non tender - Derm Derm: Normal color, Warm and dry Results - Vitals Vitals: Oxygen O2 Source Room air - Rads (name of study) chest xray Radiology: Prelim report reviewed (no infiltrates nor lesions), EMP read contemporaneously, See rad report PD MEDICAL DECISION MAKING - ED course Complexity details: reviewed old records, considered differential (persistent cough sounds bacterial/bronchitis - had Doxy then zpack without full improvement. Can try treatment toward pneumococcal with Keflex.), d/w patient Departure - Departure Disposition: 01 Home, Self Care Clinical Impression: Cough, persistent Bronchitis, acute Qualifiers: Bronchitis organism: unspecified organism Qualified Code(s): J20.9 - Acute bronchitis, unspecified Condition: Stable Record reviewed to determine appropriate education?: Yes Instructions: ED Upper Resp Infec Abx Tx Follow-Up: Shell Lee ARNP [Primary Care Provider] - Prescriptions: Albuterol Sulf [Ventolin Hfa Inhaler] 1 - 2 puffs INH Q4HR PRN #1 inhaler PRN Reason: Shortness Of Air/Wheezing Benzonatate [Tessalon Perle] 100 - 200 mg PO TID PRN #30 capsule PRN Reason: Cough Cephalexin [Keflex] 500 mg PO TID #24 capsule Dexamethasone [Decadron] 4 mg PO DAILY #5 tablet Comments: Stay well-hydrated. Tylenol or ibuprofen if needed for fevers and pains. Use the albuterol inhaler 2 puffs 4 times a day for the next 7 to 10 days and extra times as needed. Decadron steroid for inflammation of the airways and bronchials will help reduce his coughing. Tessalon if needed for cough. Cephalexin and antibiotic as prescribed. Recheck if not improving over the next several days to week. Discharge Date/Time: 01/16/19 21:13
[2019-01-16] MEDS ORDERED: CHERRY SYRUP 10 ML UDC PO ONE (20:09)
[2019-01-16] MEDS ORDERED: DEXAMETHASONE 10 MG/ML VIAL PO STA (20:09)
[2019-01-16] MEDS ORDERED: BENZONATATE 100 MG CAPSULE PO STA (20:09)
--- NOTE | 2019-01-16 20:37 | XRAY Report ---
Reason: dyspnea/ cough Procedure Date: 01/16/2019 Accession Number: [id number] / [id number] Procedure: XR - Chest 2 View X-Ray CPT Code: 18612 FULL RESULT: EXAM: CHEST RADIOGRAPHY EXAM DATE: 01/16/2019 08:23 PM. CLINICAL HISTORY: Dyspnea/ cough. COMPARISON: CHEST 2 VIEW 03/04/2018 4:57 PM. TECHNIQUE: 2 views. FINDINGS: Lungs/Pleura: Clear. No effusion or pneumothorax. Mediastinum: Heart and mediastinal contours are unremarkable. Upper lobe vessels not distended. Other: None. IMPRESSION: Normal study. RADIA
[2019-01-16 21:13] VITALS: BP 125/84
== END 2019-01-16 21:13 | disposition home or self-care (01) ==
LOC: ED 17:33
DX: J20.9 Acute bronchitis, unspecified (principal)
CPT/HCPCS: 71046; 99283; A9270

== ENCOUNTER 2019-06-01 13:46 | Outpatient (CLI) | payer OTHER ==
--- NOTE | 2019-06-01 16:09 | XRAY Report ---
Reason: CONSTIPATION,CHRONIC Procedure Date: 06/01/2019 Accession Number: [id number] / [id number] Procedure: XRN - Abdomen 1 View X-Ray CPT Code: 10556 FULL RESULT: EXAM: ABDOMEN RADIOGRAPHY EXAM DATE: 06/01/2019 02:13 PM. CLINICAL HISTORY: Constipation, chronic. COMPARISON: None. TECHNIQUE: 1 view. FINDINGS: Bowel Gas Pattern: Nonobstructive with moderate stool burden. Other: None. IMPRESSION: Moderate stool burden. RADIA
== END 2019-06-01 13:47 | disposition home or self-care (01) ==
LOC: DI.N 13:46
PROVIDERS: ATTEND Nurse Practitioner Gerontology
DX: K59.09 Other constipation (principal)
CPT/HCPCS: 74018

== ENCOUNTER 2019-06-06 14:44 | Emergency (ER) | payer OTHER ==
[2019-06-06 15:06] LABS: BILIRUBIN,URINE NEGATIVE (NEGATIVE); GLUCOSE, URINE (UA) NEGATIVE (NEGATIVE); KETONES,URINE (UA) NEGATIVE (NEGATIVE); LEUKOCYTE ESTERASE, URINE NEGATIVE (NEGATIVE); NITRITE,URINE NEGATIVE (NEGATIVE); OCCULT BLOOD,URINE NEGATIVE (NEGATIVE); PH,URINE 5.5 PH (5.0-7.5); PROTEIN,URINE NEGATIVE (NEGATIVE); UROBILINOGEN,URINE 0.2 (NORMAL) E.U./dL (NORMAL)
[2019-06-06 15:07] LABS: CLARITY,URINE CLEAR (CLEAR)
[2019-06-06 15:12] LABS: HCG UR QUAL NEGATIVE
--- NOTE | 2019-06-06 17:05 | ED Physician Documentation ---
PD HPI ABD PAIN - Stated complaint Stated Complaint: R SIDE PX/CHILLS/AB PX - Chief complaint Chief Complaint: Abd Pain - History obtained from History obtained from: Patient - History of Present Illness Timing - onset: Yesterday (33-year-old woman with history of right oophorectomy for cysts and tubal ligation presents with 3 weeks of lower abdominal cramping like a. But she has not had any bleeding associated with diarrhea that is been nonbloody. More acutely since yesterday she is had right lower quadrant pain. She is had chills and sweats with it and one episode of vomiting.) Review of Systems Ten Systems: 10 systems reviewed and negative Constitutional: denies: Fever, Chills Cardiac: denies: Chest pain / pressure, Palpitations Respiratory: denies: Cough PD PAST MEDICAL HISTORY - Past Medical History Cardiovascular: None Respiratory: Asthma Neuro: Headaches Endocrine/Autoimmune: None GI: None DISCHARGE PLANNER: None : None HEENT: None Psych: Depression Musculoskeletal: None Derm: None - Past Surgical History Past Surgical History: Yes General: Other HEENT: Tonsil/Adenoidectomy - Present Medications Home Medications: Ambulatory Orders Medication Instructions Recorded Confirmed buPROPion [Wellbutrin Sr] 300 mg PO DAILY 08/17/15 10/29/18 Zolpidem Tartrate [Ambien] 10 mg PO DAILY PM 04/24/17 04/30/17 Benzonatate [Tessalon Perle] 100 - 200 mg PO TID PRN #30 capsule 10/29/18 Doxycycline Hyclate 100 mg PO BID #20 capsule 10/29/18 Fexofenadine HCl [Laisha Allergy] 1 tab PO DAILY 10/29/18 10/29/18 Fluticasone [Flonase] 1 spray MALISSA BID PRN 10/29/18 10/29/18 Lisdexamfetamine Dimesylate 50 mg ORAL DAILY 10/29/18 10/29/18 [Vyvanse] Spironolactone 1 tab PO DAILY 10/29/18 10/29/18 Vilazodone HCl [Viibryd] 20 mg PO DAILY 10/29/18 10/29/18 Zolpidem Tartrate [Ambien] 10 mg PO DAILY PM 10/29/18 10/29/18 dexAMETHasone [Decadron] 4 mg PO DAILY #5 tablet 10/29/18 Albuterol Sulf [Ventolin Hfa 1 - 2 puffs INH Q4HR PRN #1 inhaler 01/16/19 Inhaler] Benzonatate [Tessalon Perle] 100 - 200 mg PO TID PRN #30 capsule 01/16/19 Cephalexin [Keflex] 500 mg PO TID #24 capsule 01/16/19 dexAMETHasone [Decadron] 4 mg PO DAILY #5 tablet 01/16/19 Ondansetron Odt [Zofran] 4 mg TL Q6H PRN #10 tablet 06/06/19 - Allergies Allergies/Adverse Reactions: Allergies Allergy/AdvReac Type Severity Reaction Status Date / Time Penicillins Allergy Rash Verified 06/06/19 14:46 - Social History Does the pt smoke?: No Smoking Status: Never smoker Does the pt drink ETOH?: No Does the pt have substance abuse?: No - Family History Family history: reports: Non contributory - Immunizations Immunizations are current?: Yes - POLST Patient has POLST: No PD ED PE NORMAL - Vitals Vital signs reviewed: Yes - General General: Alert and oriented X 3, No acute distress - HEENT HEENT: PERRL, EOMI - Neck Neck: Supple, no meningeal sign, No bony TTP - Cardiac Cardiac: RRR, No murmur - Respiratory Respiratory: No respiratory distress, Clear bilaterally - Abdomen Abdomen: Other (Mild focal tenderness in the right lower quadrant with hyperactive bowel tones, no surgical signs.) - Back Back: No CVA TTP, No spinal TTP - Derm Derm: Normal color, Warm and dry - Extremities Extremities: No deformity, No edema, No calf tenderness / cord - Neuro Neuro: Alert and oriented X 3, Normal speech Results - Vitals Vitals: Vital Signs - 24 hr 06/06/19 14:47 Temperature 36.6 C Heart Rate 89 Respiratory 16 Rate Blood Pressure 145/99 H O2 Saturation 96 Oxygen O2 Source Room air - Labs Labs: Laboratory Tests 06/06/19 06/06/19 06/06/19 15:00 17:16 17:16 WBC 11.9 H RBC 3.94 L Hgb 12.4 Hct 35.1 L MCV 89.1 MCH 31.5 H MCHC 35.3 RDW 11.6 L Plt Count 365 MPV 9.1 Neut # (Auto) 7.9 H Lymph # (Auto) 3.4 [place] # (Auto) 0.4 Eos # (Auto) 0.1 Baso # (Auto) 0.1 Absolute Nucleated RBC 0.00 Nucleated RBC % 0.0 Sodium 137 Potassium 3.5 Chloride 103 Carbon Dioxide 22 Anion Gap 12.0 BUN 10 Creatinine 0.7 Estimated GFR (MDRD) 97 Glucose 95 Calcium 9.2 Total Bilirubin 0.8 AST 17 ALT 16 Alkaline Phosphatase 46 Total Protein 7.7 Albumin 4.5 Globulin 3.2 Albumin/Globulin Ratio 1.4 Lipase 23 Urine Color LIGHT YELLOW Urine Clarity CLEAR Urine pH 5.5 Ur Specific [place] <=1.005 Urine Protein NEGATIVE Urine Glucose (UA) NEGATIVE Urine Ketones NEGATIVE Urine Occult Blood NEGATIVE Urine Nitrite NEGATIVE Urine Bilirubin NEGATIVE Urine Urobilinogen 0.2 (NORMAL) Ur Leukocyte Esterase NEGATIVE Ur Microscopic Review NOT INDICATED Urine Culture Comments NOT INDICATED Urine HCG, Qual NEGATIVE - Rads (name of study) CT A/P Radiology: EMP read contemporaneously (Appendix not clearly visualized but with no periappendiceal concerning findings. Several mildly prominent subcentimeter right lower quadrant lymph nodes. Left ovarian cyst.) PD MEDICAL DECISION MAKING - ED course ED course: 33-year-old woman with couple of weeks almost of loose stools and right lower quadrant pain since yesterday. The story itself is actually most concerning for something like inflammatory bowel disease but appendicitis is on the differential. CT done and results as shown. She declined pain medication but needed something for nausea. Close follow-up both for the ovarian cyst as well as the abd pain was advised. Departure - Departure Disposition: 01 Home, Self Care Clinical Impression: Mesenteric adenitis Abdominal pain Qualifiers: Abdominal location: right lower quadrant Qualified Code(s): R10.31 - Right lower quadrant pain Condition: Good Record reviewed to determine appropriate education?: Yes Instructions: ED Pelvic Pain [facility] Prescriptions: Ondansetron Odt [Zofran] 4 mg TL Q6H PRN #10 tablet PRN Reason: Nausea / Vomiting Comments: You can take Imodium as needed for the diarrhea. Return for new worsening symptoms. Follow-up with your doctor, discuss gastroenterology referral if symptoms are persistent, also repeat ultrasound in 6 to 8 weeks to reevaluate the left ovarian cyst.
[2019-06-06] MEDS ORDERED: IOVERSOL 320 100 ML VIAL IVP ONE ×2 (17:17→18:05)
[2019-06-06 17:21] LABS: BASOPHILS # (AUTO) 0.1 10^3/uL (0.0-0.1); BASOPHILS % (AUTO) 0.4 %; EOSINOPHILS # (AUTO) 0.1 10^3/uL (0.0-0.7); EOSINOPHILS % (AUTO) 0.8 %; HGB - HEMOGLOBIN 12.4 g/dL (12.0-16.0); LYMPHOCYTES # (AUTO) 3.4 10^3/uL (1.5-3.5); LYMPHOCYTES % (AUTO) 28.2 %; MEAN CORPUSCULAR HEMOGLOBIN 31.5 pg (27.0-31.0); MEAN CORPUSCULAR HGB CONC 35.3 g/dL (32.0-36.0); MEAN CORPUSCULAR VOLUME 89.1 fL (81.0-99.0); MEAN PLATELET VOLUME 9.1 fL (7.9-10.8); MONOCYTES # (AUTO) 0.4 10^3/uL (0.0-1.0); MONOCYTES % (AUTO) 3.4 %; NEUTROPHILS # (AUTO) 7.9 10^3/uL (1.5-6.6); NEUTROPHILS % (AUTO) 66.6 %; PLT - PLATELET COUNT 365 10^3/uL (130-450); RED BLOOD COUNT 3.94 10^6/uL (4.20-5.40); RED CELL DISTRIBUTION WIDTH 11.6 % (12.0-15.0); WHITE BLOOD COUNT 11.9 x10^3/uL (4.8-10.8)
[2019-06-06 17:53] LABS: ALBUMIN 4.5 g/dL (3.2-5.5); ALBUMIN/GLOBULIN RATIO 1.4 (1.0-2.2); BILIRUBIN,TOTAL 0.8 mg/dL (0.2-1.0); CALCIUM 9.2 mg/dL (8.5-10.3); CREATININE 0.7 mg/dL (0.4-1.0); TOTAL PROTEIN 7.7 g/dL (6.7-8.2)
[2019-06-06] MEDS ORDERED: ONDANSETRON 4 MG/2 ML VIAL IVP STA (18:41)
--- NOTE | 2019-06-06 18:48 | CT Report ---
Reason: IV only, RLQ pain Procedure Date: 06/06/2019 Accession Number: [id number] / [id number] Procedure: CT - Abdomen/Pelvis W CPT Code: FULL RESULT: EXAM: CT ABDOMEN AND PELVIS EXAM DATE: 06/06/2019 06:05 PM. CLINICAL HISTORY: Right lower quadrant pain. COMPARISONS: None. TECHNIQUE: Routine helical CT imaging was performed through the abdomen and pelvis. IV contrast: OPTI 320 100ML. Enteric contrast: No. Reconstructions: Coronal and sagittal. In accordance with CT protocol optimization, one or more of the following dose reduction techniques were utilized for this exam: automated exposure control, adjustment of mA and/or KV based on patient size, or use of iterative reconstructive technique. FINDINGS: Lung Bases: Small calcified right lower lobe granuloma. Otherwise clear. Small fat-containing left sided Bochdalek hernia. Liver: Normal. No masses. Gallbladder/Bile Ducts: Unremarkable. Spleen: Normal. Pancreas: Normal. Adrenal Glands: Normal. Kidneys: Normal. No masses or hydronephrosis. Peritoneal Cavity/Bowel: No free air or free fluid. No mass or acute inflammatory process. No obstruction. Appendix not clearly visualized; no pericecal inflammatory changes are evident. Several mildly prominent right lower quadrant mesenteric lymph nodes measuring up to approximately 7 mm short axis. Pelvic Organs: There is a 27 mm cystic appearing left ovarian/adnexal hypodensity. Otherwise unremarkable. Vasculature: No aneurysms or other significant abnormality. Bones: No significant abnormality. Other: None. IMPRESSION: 1. Appendix not clearly visualized; no pericecal inflammatory changes are evident. 2. Several mildly prominent subcentimeter right lower quadrant mesenteric lymph nodes, could reflect mesenteric adenitis in the correct clinical context. 3. Left ovarian/adnexal 27 mm cystic-appearing hypodensity. Consider pelvic ultrasound correlation as clinically warranted. 4. Other findings as noted above. [facility]
[2019-06-06 19:17] VITALS: BP 121/76
== END 2019-06-06 19:17 | disposition home or self-care (01) ==
LOC: ED 14:44
DX: I88.0 Nonspecific mesenteric lymphadenitis (principal); R11.2 Nausea with vomiting, unspecified; R19.7 Diarrhea, unspecified; N83.202 Unspecified ovarian cyst, left side; Z90.721 Acquired absence of ovaries, unilateral
CPT/HCPCS: 36415; 74177; 80053; 81003; 81025; 83690; 85025; 96374; 99284; Q9967; 81001; 87086